=== PATIENT | female | born 1995 | race Caucasian/White ===

== ENCOUNTER 2018-01-22 11:40 | Emergency (ER) | payer SELFPAY ==
[2018-01-22 11:42] VITALS: BP 102/54; PULSE 83; RESP 18; TEMP 36.7; O2SAT 99; BMI 19.1
--- NOTE | 2018-01-22 12:50 | RAD_ITS ---
STUDY: X-RAY - LEFT KNEE REASON FOR EXAM: Female, 22 years old. LEFT KNEE PAIN, UNKNOWN CAUSE TECHNIQUE: 4 view(s) of the knee. COMPARISON: None. FINDINGS: Normal visualized distal femur. Normal visualized proximal tibia and fibula. Normal proximal tibiofibular articulation. Normal medial femorotibial compartment. Normal lateral femorotibial compartment. Normal patellofemoral articulation. The soft tissue structures are unremarkable. RAD/Knee 4 or More Views IMPRESSION: Normal x-ray examination of the knee. Electronically Signed: Jake Wren MD at 13:15 EDT Tel , Service support ,
--- NOTE | 2018-01-22 13:41 | ED.VISSUMM ---
- ER Visit Summary Date of Service: 01/22/18 Chief Complaint: Left knee pain History of Present Illness: The patient is a 22 F who states that for the past week now she has had pain on the lateral posterior aspect of her left knee. She states that she noticed it last week when she was down crouching position and had some pain and later needed assistance getting out of that same position. She states that her hurts to fully straighten the leg. She has been using an Gabriel wrap. She does not have any health insurance and wonders how she can get follow-up from this visit. Ibuprofen. She has access to crutches. Physical Examination: Afebrile vital signs are stable The ligaments appear stable. She has tenderness over the posterior lateral joint line. She has pain with full extension. Extensor mechanism is intact. There is minimal superficial swelling but I do not appreciate joint effusion. Test Results: Knee films were negative Emergency Department Course and Treatment: Patient will use Gabriel wrap anti-inflammatories ice. I advised her she may follow-up the starts in clinic would be a logical place for her and I also gave her on-call orthopedics. We talked about conservative treatment and this would most likely get better however we did discuss the possibility of meniscal injury. Impression: 1. Left knee pain This note was generated with [employer] dictation software. It may contain incorrect words, spelling, and punctuation that were not noted in review of the chart prior to signing ED Disposition - Plan for ED Patient: Disposition: Home or Assisted Living Chief Complaint: Lower Extremity Injury Instructions: ED Meniscal Injury Knee Poss Referrals: Tadeo Herman DO [STAFF PHYSICIAN] - (for orthopedic surgery) Emeli Herrera [NON-STAFF] - As soon as possible Additional Instructions: Gabriel wrap Ice 20 minute sessions Motrin 600 mg every 8 hours as needed for pain Crutches as needed
== END 2018-01-22 14:28 | disposition home or self-care (01) ==
PROVIDERS: Emergency Provider Emergency Medicine
DX: M25.562 Pain in left knee (principal); N80.9 Endometriosis, unspecified
CPT/HCPCS: 73564; 99282